=== PATIENT | male | born 1940 ===

== ENCOUNTER 2023-07-02 10:10 | Emergency (ER) | payer MEDICARE, BC, SELFPAY ==
[2023-07-02 10:26] VITALS: BP 164/80
--- NOTE | 2023-07-02 10:41 | ED.GENMED ---
History of Present Illness
<Gisell Garcia PA-C - Last Filed: 07/02/23 14:50>
General
Chief Complaint: Head Injury
Source: patient
Exam Limitations: none
Time Seen by Provider: 07/02/23 10:36
Nursing documentation reviewed up to this point in time: agreed with
Travel History
Have you had any contact with someone who has COVID-19?: No
Do you have any symptoms of coronavirus? Fever > 100 degrees, chills, cough, shortness of breath, sore throat, loss of taste or smell, muscle aches, or headache?: No
History of Present Illness
History of Present Illness:
This is a 83-year-old male with a history of Parkinson's disease presenting to emergency department today with headache and dizziness following falling out of bed and hitting his head in his sleep. Patient reports that he was having a dream that he
was throwing a baseball when he slid off his bed. Patient denies any syncopal episodes, nausea vomiting, difficulty walking, double vision, lightheadedness. Patient denies any abdominal pain, shoulder pain, leg pain, or any other injuries.
Patient has no soft tissue injuries and does not take a blood thinner.
Review of Systems
<Gisell Garcia PA-C - Last Filed: 07/02/23 14:50>
Review of Systems
All Other Systems: ROS reviewed and negative except as documented in HPI and ROS
Phy Exam
<Gisell Garcia PA-C - Last Filed: 07/02/23 14:50>
Physical Exam
Physical Exam:
General: patient is well appearing and in no acute distress
HEENT: Head--no palpable hematomas of the scalp. No tenderness to palpation. Small abrasion of the right forehead. No areas of ecchymosis. Ears--no hemotympanum. Eyes--no newman sign, no raccoon sign.
Skin: warm and dry, no rashes or lesions
Cardiac: regular rate, no tenderness to palpation of the external chest wall.
Pulm: normal respiratory effort
Abdomen: no tenderness to palpation
Musculoskeletal: Patient seen spontaneously moving cervical spine. Patient has no tenderness palpation of the cervical spine.
Neuro: AAOX3. CN II-XII intact. No focal neurologic deficit. Finger-nose, tebu-ox-nqtx testing intact. GCS 15.
Course
<Gisell Garcia PA-C - Last Filed: 07/02/23 14:50>
Orders/Labs/Results
Orders:
Orders
07/02/23 10:56
CT Head W/o Iv Contrast Urgent
Comment:
Reason For Exam: headache, dizziness following fall
Vital Signs
Initial and Last Documented VS:
Initial Vital Signs
Temp Pulse Resp BP Pulse Ox
98.1 F 65 18 164/80 94
07/02/23 10:26 07/02/23 10:26 07/02/23 10:26 07/02/23 10:26 07/02/23 10:26
Last Documented Vital Signs
Temp Pulse Resp BP Pulse Ox
98.1 F 77 16 159/85 99
07/02/23 10:26 07/02/23 12:07 07/02/23 12:07 07/02/23 12:07 07/02/23 12:07
<Erich Ferro DO - Last Filed: 07/02/23 15:01>
Orders/Labs/Results
Orders:
Orders
07/02/23 10:56
CT Head W/o Iv Contrast Urgent
Comment:
Reason For Exam: headache, dizziness following fall
Vital Signs
Initial and Last Documented VS:
Initial Vital Signs
Temp Pulse Resp BP Pulse Ox
98.1 F 65 18 164/80 94
07/02/23 10:26 07/02/23 10:26 07/02/23 10:26 07/02/23 10:26 07/02/23 10:26
Last Documented Vital Signs
Temp Pulse Resp BP Pulse Ox
98.1 F 77 16 159/85 99
07/02/23 10:26 07/02/23 12:07 07/02/23 12:07 07/02/23 12:07 07/02/23 12:07
<Gisell Garcia PA-C - Last Filed: 07/02/23 14:50>
MDM/Problems Addressed
Differential Diagnosis Includes:
ddx include concussion, frontal skull fracture, cutaneous hematoma, epidural hematoma, intracerebral hemmorhage
MDM/Problems Addressed:
head trauma
Chronic conditions affecting care: Neurological disorder (Parkinson's disease)
<Gisell Garcia PA-C - Last Filed: 07/02/23 14:50>
*Pulse Oximetry
Patient hypoxic: no
*Critical Care Note
Total Time (30-74mins, 75-104mins- exclusive of procedures): Not Applicable
Data Reviewed
Review of Other/Old Records Reveals: Records (No previous records in [facility] to review)
<Gisell Garcia PA-C - Last Filed: 07/02/23 14:50>
Patient Management
Escalation/DeEscalation of care consider admission/obs:
This is a 83-year-old male presenting emergency department today with headache and dizziness following trauma to the head. He denies any other injuries. Patient fell out of bed while dreaming and hit his head. He has no other complaints and denies
no other injuries. On exam, he has no acute neurological deficits and he has a GCS of 15. He has a small abrasion on the right side of the forehead. CT scan reveals no acute intracranial abnormalities. Patient is stable for discharge.
ED Attending Note
<Gisell Garcia PA-C - Last Filed: 07/02/23 14:50>
-
Portions of this chart may have been created with voice recognition software.� Occasional wrong word or��sound alike� substitutions may have occurred due to the inherent limitations of voice recognition software.
<Erich Ferro, - Last Filed: 07/02/23 15:01>
ED Attending Note
Patient seen and examined by attending physician: Yes
I performed a history and physical exam of patient and discussed management with resident, I reviewed resident's note and agree with documented findings and plan of care.: Yes
ED Attending Note:
I have reviewed and agree with history and treatment plan by Gisell Garcia.
My exam revealed
Physical Exam
General: no apparent distress, not acutely ill
Neck: supple. no meningeal signs. normal posterior pharynx
Heart: s1/s2 regular rate and rhythm, no murmur. equal radial
pulses.
HEENT: Pupils equal round reactive to light, EOMI
Lungs: no acute respiratory distress. clear bilaterally
Abdomen: normal bowel sounds. not tender. no CVAT
Neuro: alert and oriented. no focal neurological deficits cranial nerves II through XII intact
Skin: no rash
Psychiatric: well kept. interactive and cooperative
Extremities: no edema. no calf tenderness. negative homans. good distal pulses
Consistent with head contusion. No signs intracranial hemorrhage or CVA. Stable for discharge.
Discharge Plan
Departure
Patient Disposition: Home (Routine Discharge)
Date of Disposition: 07/02/23
Time of Disposition: 12:02
Patient with high blood pressure during this ER visit?: Yes
Condition: Good
Discharge Problem:
Fall
Instructions: BLOOD PRESSURE, Fall Prevention for Older Adults
Referrals:
NONE,* [Family Provider] -
Activity Restrictions/Additional Instructions:
Please follow-up with your primary care provider.
Please return for any other concerns.
Interventions
Interventions:
*Risk Screen - Suicide Last Done: 07/02/23 11:01
*General Assessment Last Done: 07/02/23 11:01
*Neglect/Abuse Screening Last Done: 07/02/23 11:01
ED- Fall Risk Assessment Last Done: 07/02/23 12:07
*ED COVID-19 Vaccine History Last Done: 07/02/23 11:01
*Nursing Disposition Last Done: 07/02/23 12:07
ED- Neurological Assessment Last Done: 07/02/23 11:01
ED-Skin Assessment Last Done: 07/02/23 11:01
Discharge Date and Time
Discharge Date/Time: 07/02/23 12:08
[2023-07-02 12:07] VITALS: BP 159/85
== END 2023-07-02 12:08 | disposition home or self-care (01) ==
LOC: EMR 10:10
PROVIDERS: EMERGENCY PHYSICIAN Emergency Medicine
DX: S09.90XA Unspecified injury of head, initial encounter (principal); R51.9 Headache, unspecified; S00.81XA Abrasion of other part of head, initial encounter; R42 Dizziness and giddiness; W06.XXXA Fall from bed, initial encounter; R03.0 Elevated blood-pressure reading, without diagnosis of hypertension; G20.A1 Parkinson's disease without dyskinesia, without mention of fluctuations; Z88.0 Allergy status to penicillin
CPT/HCPCS: 99284; 70450

== ENCOUNTER 2024-02-24 16:09 | Emergency (ER) | payer MEDICARE, BC, SELFPAY ==
[2024-02-24 16:21] VITALS: BP 149/80
[2024-02-24 16:52] LABS: % Basophils 0.6 % (0-2); % Eosinophils 4.4 % (0-6); % Immature Granulocytes 0.3 % (0-0.5); % Lymphocytes 32.8 % (20.5-51.1); % Monocytes 7.4 % (1.7-9.3); % Neutrophils 54.5 % (42.2-75.2); Absolute Basophils 0.1 10^3/uL (0-0.2); Absolute Eosinophils 0.4 10^3/uL (0-0.7); Absolute Lymphocytes 2.6 10^3/uL (1.2-3.4); Absolute Monocytes 0.6 10^3/uL (0.1-0.6); Absolute Neutrophils 4.3 10^3/uL (1.4-6.5); Hematocrit 46.9 % (39.0-52.0); Hemoglobin 15.8 g/dL (13.0-18.0); Mean Corp Hgb Conc. 33.7 g/dL (33.0-37.0); Mean Corpuscular Hgb 28.2 pg (27.0-31.0); Mean Corpuscular Volume 83.8 fL (80.0-94.0); Mean Platelet Volume 8.9 fL (7.4-10.4); Nucleated Red Blood Cells % 0 % (-); Platelet Count 195 10^3/uL (130-400); Red Cell Dist. Width 13.3 % (11.5-14.5); White Blood Cell Count 7.9 10^3/uL (4.8-10.8)
[2024-02-24 17:08] LABS: ALT (SGPT) 23 U/L (0-50); AST (SGOT) 32 U/L (17-59); Albumin 4.7 g/dl (3.5-5.0); Alkaline Phosphatase 74 U/L (38-126); Blood Urea Nitrogen 21 mg/dl (9-20); Calcium 9.4 mg/dl (8.4-10.2); Carbon Dioxide 28 mmol/L (22-30); Chloride 102 mmol/L (98-107); Glucose 116 mg/dl (70-99); Potassium 4.6 mmol/L (3.5-5.1); Sodium 141 mmol/L (135-145); Total Bilirubin 0.7 mg/dl (0.2-1.3); Total Protein 7.2 g/dl (6.3-8.2); eGFR > 60.00
[2024-02-24 17:19] LABS: Troponin I < 0.012 ng/ml
--- NOTE | 2024-02-24 18:59 | ED.GENMED ---
History of Present Illness
General
Chief Complaint: Dizziness
Time Seen by Provider: 02/24/24 18:31
History of Present Illness
History of Present Illness:
84-year-old male with history of Parkinson's disease presents to the emergency department for evaluation of orthostatic dizziness/vertigo that began 3 days ago. Patient states he has had similar symptoms in the past and felt this was due to his
Parkinson's. He does note that the symptoms were mild when it first began earlier in the week, felt they could be due to his carbidopa levodopa as this was on the package insert, thus he stopped taking all of his medication 3 days ago and symptoms
dramatically worsened. He has not fallen but feels unsteady when walking. Denies any dizziness at rest. No chest pain or shortness of breath. Follows with a neurologist in [place] but his primary care physician is his longtime PCP and aortic
Review of Systems
Review of Systems
Allergies reviewed?: Yes
All Other Systems: ROS reviewed and negative except as documented in HPI and ROS
Phy Exam
Physical Exam
Physical Exam:
GEN: Well appearing, NAD, WDWN
HEENT: Oral mucosa moist, no scleral icterus, no nasal congestion
Cardiac: Regular rate and rhythm, no murmurs
Lung: No respiratory distress, no tachypnea
MSK: No gross deformity or injuries
Skin: Good color, no pallor or jaundice, no rashes
Neuro: AO x3; CN II-XII grossly intact. BUE strength 5/5 in all alonso, sensation intact and symmetric. BLE strength 5/5 in all alonso, sensation intact and symmetric. Slight shuffling gait, steady with no ataxia. There is a notable cogwheel
rigidity with gait however no pill-rolling tremors
Psych: Calm, cooperative
Course
Orders/Labs/Results
Orders:
Orders
02/24/24 16:23
Electrocardiogram (*1) Urgent
Reason for Study: Chest Pain
EKG- Treatment ONCE
02/24/24 16:37
Complete Blood Count/With Diff Urgent
Comprehensive Metabolic Panel Urgent
Troponin I Urgent
Abnormal Lab Results
02/24/24
16:37
BUN 21 H mg/dl
(9-20)
Glucose 116 H mg/dl
(70-99)
02/24/24 16:37
02/24/24 16:37
Vital Signs
Initial and Last Documented VS:
Initial Vital Signs
Temp Pulse Resp BP Pulse Ox
98 F 79 16 149/80 97
02/24/24 16:21 02/24/24 16:21 02/24/24 16:21 02/24/24 16:21 02/24/24 16:21
Last Documented Vital Signs
Temp Pulse Resp BP Pulse Ox
98 F 79 16 149/80 97
02/24/24 16:21 02/24/24 16:21 02/24/24 16:21 02/24/24 16:21 02/24/24 16:21
MDM/Problems Addressed
MDM/Problems Addressed:
Is unclear whether the patient's orthostasis may be related to his underlying Parkinson's versus his carbidopa levodopa. Certainly would favor his underlying disease given the fact that stopping his medications seem to exacerbate the symptoms. He
is not orthostatic in terms of blood pressure in the emergency department and his labs are reassuring. Do not see any indication for CT of the head. At this time will recommend outpatient neurology follow-up, he is comfortable with discharge to
home does not feel unsafe at this time
*Critical Care Note
Total Time (30-74mins, 75-104mins- exclusive of procedures): Not Applicable
ED Attending Note
-
Portions of this chart may have been created with voice recognition software.� Occasional wrong word or��sound alike� substitutions may have occurred due to the inherent limitations of voice recognition software.
Discharge Plan
Departure
Patient Disposition: Home (Routine Discharge)
Date of Disposition: 02/24/24
Time of Disposition: 19:00
Patient with high blood pressure during this ER visit?: No
Discharge Problem:
Orthostatic dizziness
Instructions: Vertigo (a type of dizziness)
Activity Restrictions/Additional Instructions:
The cause of your symptoms is not clear at this time however you have no acute neurologic deficits to suggest a stroke and your blood work/EKG was normal. You appear to be steady when walking as long as he walks slowly. This is likely due to your
neurologic disorder however the acute worsening of your symptoms may be due to recently stopping the medication. Please resume your medications as prescribed and follow-up with your neurologist. You may consider a second opinion with the [place]
[facility]
Call [phone] for more information about following up at [place]
Interventions
Interventions:
*Risk Screen - Suicide Last Done: 02/24/24 16:21
*General Assessment Last Done: 02/24/24 18:55
*Neglect/Abuse Screening Last Done: 02/24/24 16:21
*ED COVID-19 Vaccine History Last Done: 02/24/24 18:55
*Nursing Disposition Last Done: 02/24/24 19:17
ED- Neurological Assessment Last Done: 02/24/24 19:17
ED- Cardiac Assessment Last Done: 02/24/24 19:17
Discharge Date and Time
Discharge Date/Time: 02/24/24 19:18
Print Language: [place]
== END 2024-02-24 19:18 | disposition home or self-care (01) ==
LOC: EMR 16:09
PROVIDERS: Emergency Medicine; EMERGENCY PHYSICIAN Emergency Medicine; FAMILY PHYSICIAN Internal Medicine
DX: R42 Dizziness and giddiness (principal); G20.A1 Parkinson's disease without dyskinesia, without mention of fluctuations; Z88.0 Allergy status to penicillin
CPT/HCPCS: 99283; 80053; 84484; 85025; 93005